=== PATIENT | male | born 1965 | race Hispanic/Latino ===

== ENCOUNTER 2018-04-03 07:48 | Day surgery (SDC) | payer BC ==
[2018-03-30 12:16] LABS: Absolute Lymphocytes (CBC) 3.6 K/uL (0.7-4.9); Absolute Monocytes 0.6 K/uL (0.1-1.3); Basophils % 0.4 % (0-1.3); Eosinophils % 1.3 % (0-4.4); Hematocrit 42.9 % (39.6-49.0); Lymphocytes % 43.4 % (15.3-44.8); MCH 28.1 pg (27.0-35.0); MCV 87.1 fL (80-100); MPV 8.7 fL (7.6-11.3); Monocytes % 6.8 % (3.3-12.3); RBC Red Blood Cell Count 4.92 M/uL (4.33-5.43)
[2018-03-30 12:18] LABS: Protime INR 0.92
[2018-03-30 12:24] LABS: Urine Appearance CLEAR; Urine Bilirubin NEGATIVE (NEG); Urine Blood 1+ (NEG); Urine Color YELLOW; Urine Glucose NEGATIVE (NEG); Urine Protein NEGATIVE (NEG); Urine Specific Gravity 1.025 (1.005-1.030); Urine Urobilinogen 0.2 mg/dL (0.2-1.0); Urine pH 6.5 (5.0-7.0)
[2018-03-30 12:35] LABS: Urine Bacteria <20 /HPF (NONE SEEN); Urine RBC <5 /HPF (NONE SEEN)
[2018-03-30 12:36] LABS: Urine Culture Reflex Order NOT NEEDED; Urine Mucus 1+ /HPF (NONE SEEN)
[2018-03-30 12:40] LABS: Phosphorus 3.3 mg/dL (2.5-4.3); Uric Acid 6.5 mg/dL (4.8-8.7)
--- NOTE | 2018-03-30 13:34 | EKG ---
Test Date: 2018-03-30 Test Time: 11:56:32 Director Of Golf: LAVELLE MEASUREMENT RESULTS: Intervals: Rate: 64 MD: 142 QRSD: 88 QT: 406 QTc: 418 Mcconnells: P: 42 MD: 142 QRS: 18 T: 29 INTERPRETIVE STATEMENTS: Normal sinus rhythm with sinus arrhythmia Normal ECG No previous ECG available for comparison Electronically Signed On 03-30-18 13:34:11 CDT by Beny Garcia
[~2018-04-03 07:48] MED LIST: GENTAMICIN 100 MG/100 ML BAG 100 MG/100 ML BAG IV SCH
[2018-04-03] MEDS ORDERED: GENTAMICIN 100 MG/100 ML BAG 100 MG/100 ML BAG IV ONE (08:00)
[2018-04-03] MEDS ORDERED: Ringers Lactate 1,000 ML IV ONE ×2 (08:00→10:15)
[2018-04-03] MEDS ORDERED: PROPOFOL 200 MG/20 ML VIAL IV ONE (08:59)
[2018-04-03] MEDS ORDERED: FENTANYL CITR 100 MCG/2 ML ONE (09:00)
[2018-04-03] MEDS ORDERED: MIDAZOLAM HCL 2 MG/2 ML INJ ONE (09:00)
--- NOTE | 2018-04-03 10:09 | RAD REPORT ---
EXAM DESCRIPTION: RAD - Abdomen 1 View (KUB) - 04/03/2018 8:08 am CLINICAL HISTORY: Flank pain COMPARISON: 02/19/2018 FINDINGS: The bowel gas pattern is non-obstructive. No evidence of free air or pneumatosis. Calcific ations are present in both kidneys compatible with bilateral nephrolithiasis. Partial sacralization of L5. IMPRESSION: Bilateral nephrolithiasis, stable.
[2018-04-03] MEDS ORDERED: OXYBUTYNIN CHLORIDE 5 MG TAB ONE (11:52)
== END 2018-04-03 12:00 | disposition home or self-care (01) ==
LOC: OR 07:48
PROVIDERS: ATTEND Urology
PROC: 0TF3XZZ Fragmentation in Right Kidney Pelvis, External Approach (ICD-10-PCS; principal; 2018-04-03 09:00)
PROC: 0T7D8DZ Dilation of Urethra with Intraluminal Device, Via Natural or Artificial Opening Endoscopic (ICD-10-PCS; 2018-04-03 09:00)
DX: N40.1 Benign prostatic hyperplasia with lower urinary tract symptoms (principal); R39.12 Poor urinary stream; N20.0 Calculus of kidney; Z88.0 Allergy status to penicillin
CPT/HCPCS: 36415; 50590; 74018; 81001; 84100; 84550; 85025; 85610; 85730; 93005; J1580; J2250; J3010

== ENCOUNTER 2021-05-04 10:19 | Day surgery (SDC) | payer BC ==
[2021-04-30 10:39] LABS: Absolute Lymphocytes (CBC) 2.8 K/uL (0.7-4.9); Hematocrit 39.8 % (39.6-49.0); Lymphocytes % 31.8 % (15.3-44.8); MPV 8.3 fL (7.6-11.3); RBC Red Blood Cell Count 4.71 M/uL (4.33-5.43)
[2021-04-30 10:42] LABS: Protime INR 0.94
[2021-04-30 10:55] LABS: Potassium 3.8 mmol/L (3.5-5.1)
--- NOTE | 2021-04-30 10:59 | RAD REPORT ---
EXAM DESCRIPTION: RAD - Chest Pa And Lat (2 Views) - 04/30/2021 10:40 am CLINICAL HISTORY: preop Chest pain. COMPARISON: Abdomen 1 View (KUB) dated 03/26/2021; Abdomen 1 View (KUB) dated 03/26/2020; Chest Pa And Lat (2 Views) dated 03/09/2020; Abdomen 1 View (KUB) dated 05/03/2018 FINDINGS: The lungs are clear. The heart is normal in size. No displaced fractures. IMPRESSION: No acute or concerning finding suspected.
--- NOTE | 2021-05-01 10:28 | EKG ---
Test Date: 2021-04-30 Test Time: 09:20:41 Public Area Attendant: ADRI MEASUREMENT RESULTS: Intervals: Rate: 85 WA: 142 QRSD: 92 QT: 370 QTc: 440 Mereta: P: 53 WA: 142 QRS: 56 T: 19 INTERPRETIVE STATEMENTS: Normal sinus rhythm Normal ECG Compared to ECG 03/09/2020 09:49:42 No significant changes Electronically Signed On 05-01-21 10:25:46 CDT by Misael Urena
[~2021-05-04 10:19] MED LIST changes: +CLINDAMYCIN INJ 600 MG in NA CHLORIDE 0.9% 50 ML IV SCH; -GENTAMICIN 100 MG/100 ML BAG 100 MG/100 ML BAG IV SCH; +Gentamicin Inj 180 MG in NA CHLORIDE 0.9% 100 ML IVPB SCH
[2021-05-04] MEDS ORDERED: Ringers Lactate 1,000 ML IV ONE (11:02)
[2021-05-04] MEDS ORDERED: GENTAMICIN 80 MG/100 ML BAG 0 MG/0 ML BAG IV ONE (11:03)
[2021-05-04] MEDS ORDERED: FENTANYL CITR 100 MCG/2 ML ONE (11:22)
[2021-05-04] MEDS ORDERED: propofoL 200 MG/20 ML VIAL IV ONE (11:22)
[2021-05-04] MEDS ORDERED: ONDANSETRON 4 MG/2 ML VIAL ONE (11:23)
[2021-05-04] MEDS ORDERED: LIDOCAINE 2% MPF 5 ML VIAL ONE (11:23)
[2021-05-04] MEDS ORDERED: MIDAZOLAM HCL 2 MG/2 ML INJ ONE (11:23)
[2021-05-04] MEDS ORDERED: dexAMETHasone 10 MG/ML VIAL ONE (11:25)
[2021-05-04] MEDS ORDERED: CODEINE 30MG/APAP 300MG TAB PO PRN (11:49)
[2021-05-04 13:07] VITALS: TEMP 97
[2021-05-04 13:12] VITALS: O2SAT 100
[2021-05-04 15:50] VITALS: BP 141/77
--- NOTE | 2021-05-04 22:33 | OP ---
Date of Procedure: 05/04/2021 Surgeon: STEFFI WARNER Preoperative Diagnosis: Left nephrolithiasis, 13 mm. Postoperative Diagnosis: Left nephrolithiasis, 13 mm. Principal Procedure: Left extracorporeal shock wave lithotripsy/ESWL. Indication For Procedure: Mr. Salter presented to the [facility]rology Clinic as a recurrent stone former w ith a large 13 mm left dominant calculus with an associated linear papillary calcification within the lower pole. The large stone was in the upper mid pole of the left kidney. There were smaller, less than 5 mm calculi within the right kidney. He was counseled and recommended for management of the c alculi in a noninvasive manner via ESWL if possible. Procedure In Detail: The patient was consented in the preoperative holding area before being transfe rred to the operative suite where general anesthesia was induced. He was given gentamicin 160 mg and clindamycin IV antimicrobial prophylaxis due to a penicillin allergy. Pneumoboots was provided for DVT prophylaxis. He was placed supine on the shockwave lithotripsy table with a water bath beneath h is flank. He was padded and secured to the table appropriately. The case was begun targeting the st one using fluoroscopic imagery in the AP and left to right positions. Once successfully targeted, sh ockwave lithotripsy was begun with a power of 1.0 and increased over time to a total maximum power of 7.0. This was done over 500 shocks before we slowly increased the rate to 1.5 Hz. The stone was sh ocked over the course of the next 2000 shocks to approximately 2500 shocks before we decreased the ra te back to 1 Hz in order to try to completely fragment the calculus. After a total of 3000 shocks benjamin d been administered, the procedure was discontinued, and the patient was transferred [facility] being awakened from general anesthesia. He was then transferred to the recovery room in good co ndition. Complications: None apparent. Discharge Disposition: He should follow up in the Urology Clinic with nurse practitioner Cristian houston the coming weeks with a KUB obtained pre-clinic. He will strain his urine for stone fragments s hould he pass them and bring them to the clinic for chemical analysis. Subsequently, the patient sherita l require a metabolic stone profile evaluation. WR/MODL Voice ID: [id number] Report ID: [id number]
== END 2021-05-04 15:00 | disposition home or self-care (01) ==
LOC: OR 10:19
PROVIDERS: ATTEND Urology
PROC: 0TF4XZZ Fragmentation in Left Kidney Pelvis, External Approach (ICD-10-PCS; principal; 2021-05-04 11:30)
DX: N20.0 Calculus of kidney (principal)
CPT/HCPCS: 36415; 50590; 71046; 80048; 85025; 85610; 87086; 87088; 93005; J1100; J1580; J2250; J2405; J2704; J3010; J7120